=== PATIENT | male | born 1975 | race Two or more races ===

== ENCOUNTER → 2025-03-26 | Outpatient (CLI) | payer MEDICAID, SELFPAY ==
--- NOTE | 2025-03-26 16:00 | XR_ITS ---
Examination: CT chest, without intravenous contrast. Sagittal and coronal 2-D reconstructions. Exam date and time: March 26, 2025 1539 hours INDICATIONS: 12 mm pulmonary nodule right lower lobe on CT chest September 22, 2023 CTDI:vol (mGy) 12.7 DLP: (mGycm) 438 Technique: Multiple 3.0 mm axial sections of the chest to been obtained. Bone and lung density settings are obtained. Sagittal and coronal 2-D reconstructions have been obtained. Low dose protocols were performed. One or more of the following dose reduction techniques were used; automated exposure control, adjustment of the mA and/or KV according to patient size, use of iterative reconstruction technique. Findings: No thoracic aortic aneurysm dilatation Pulmonary artery segments are not enlarged. No paratracheal tracheobronchial or bronchopulmonary adenopathy. Stable 12 mm pulmonary nodule right lower lobe No new pulmonary nodules No pneumonia or pulmonary edema No visualized liver or splenic lesions No gallstones No hydronephrosis IMPRESSION: Stable 12 mm pulmonary nodule right lower lobe
== END | disposition home or self-care (01) ==
LOC: CCTX 15:22
PROVIDERS: PCP Physician Assistant; Referring Provider Physician Assistant; Visit Provider Physician Assistant
DX: R91.1 Solitary pulmonary nodule (principal)
CPT/HCPCS: 71250